=== PATIENT | female | born 1985 | race African-American/Black ===

== ENCOUNTER 2023-12-17 13:31 | Emergency (ER) | payer MEDICAID ==
[~2023-12-17] VITALS: Ht 165.1 cm; Wt 65.0 kg
[2023-12-17 13:34] VITALS: BP 131/88; PULSE 96; RESP 18; TEMP 98; O2SAT 100
== END 2023-12-17 19:22 | disposition left against medical advice (07) ==
LOC: ER 13:31
DX: H10.029 Other mucopurulent conjunctivitis, unspecified eye (principal); Z53.21 Procedure and treatment not carried out due to patient leaving prior to being seen by health care provider